=== PATIENT | male | born 1950 | race Caucasian/White ===

== ENCOUNTER → 2017-03-18 | Outpatient (CLI) | payer MEDICARE, OTHER ==
[~2017-03-18] MED LIST: CENTRUM SILVER1 TA1 PO; FISH OIL 10001000 MG PO; KEFLEX500 MG PO; MECLIZINE HCL25 M1 PO; NEXIUM40 MG PO
== END | disposition home or self-care (01) ==
LOC: US 12:02
DX: M79.89 Other specified soft tissue disorders (principal); R60.0 Localized edema; Z96.653 Presence of artificial knee joint, bilateral

== ENCOUNTER 2018-11-22 10:15 | Emergency (ER) | payer MEDICARE, OTHER ==
[~2018-11-22] VITALS: Ht 180.3 cm; Wt 97.5 kg
--- NOTE | ~2018-11-22 | EKG ---
[place], [place] ELECTROCARDIOGRAM REPORT NAME: JOHN POP UNIT #: [id number] ROOM: DOCTOR: EPIPHANY DRAFT REPORT BIRTHDATE: [birth year] [facility] Test Date: 2018-11-22 Test Time: 11:04:27 Pat Name: JOHN POP Department: Room: Gender: Forensic Accountant: Carmen Clark : 1950 Requested By: MARTA DELGADO DNP Order Number: [id number] Reading MD: Bonifacio Serrato MD Measurements Intervals [place] Rate: 50 P: 66 OR: 155 QRS: 37 QRSD: 89 T: 44 QT: 426 QTc: 389 Interpretive Statements Sinus rhythm Baseline wander in lead(s) V4,V5,V6 No previous ECG available for comparison Electronically Signed On 11-24-2018 8:03:06 PDT by Bonifacio Serrato MD CM:EKGRPT:ELECTROCARDIOGRAM REPORT [id number] MARTA DELGADO DNP EPIPHANY DRAFT REPORT MARTA DELGADO DNP
[2018-11-22 10:53] LABS: BASO % 0.6 % (0.0-1.0); EOS # 0.1 10*3/uL (0.0-0.4); EOS % 1.9 % (1.0-4.0); HEMATOCRIT 46.5 % (42.0-52.0); HEMOGLOBIN 15.7 g/dl (14.0-18.0); LYMPH # 1.8 10*3/uL (1.3-4.4); LYMPH % 33.9 % (27.0-41.0); MEAN CELL VOLUME 95.9 fl (80.0-94.0); MEAN CORPUSCULAR HGB 32.4 pg (27.0-31.0); MEAN CORPUSCULAR HGB CONC 33.8 g/dl (33.0-37.0); MEAN PLATELET VOLUME 10.4 fl (9.6-12.3); MONO # 0.5 10*3/uL (0.1-1.0); MONO % 8.6 % (3.0-9.0); NEUT % 54.8 % (47.0-73.0); PLATELET COUNT AUTOMATED 211 10*3/uL (130-400); RED BLOOD COUNT 4.85 10*6/uL (4.50-5.90); RED CELL DISTRI WIDTH 12.3 % (0-14.5); WHITE BLOOD COUNT 5.4 10*3/uL (4.8-10.8)
[2018-11-22 11:04] LABS: INTERNATIONAL NORM RATIO 0.9 (2.0-3.5)
[2018-11-22 11:09] LABS: ALBUMIN 3.5 gm/dl (3.1-4.5); ALKALINE PHOSPHATASE 74 U/L (45-117); BUN 10 mg/dl (7-24); CHLORIDE 109 mmol/L (98-107); CREATININE 0.85 mg/dL (0.70-1.30); POTASSIUM 4.2 mmol/L (3.5-5.1); SGOT/AST 17 IU/L (3-35); SGPT/ALT 37 U/L (12-78); SODIUM 139 mmol/L (136-145); TOTAL PROTEIN 6.3 gm/dL (6.4-8.2)
[2018-11-22 11:11] LABS: TROPONIN I < 0.015 ng/ml (<0.045)
== END 2018-11-22 12:25 | disposition home or self-care (01) ==
LOC: ED 10:15
PROVIDERS: Nurse Practitioner Family
DX: M79.661 Pain in right lower leg (principal); R60.0 Localized edema; Z79.899 Other long term (current) drug therapy; Z87.891 Personal history of nicotine dependence

== ENCOUNTER → 2019-10-18 | Outpatient (CLI) | payer MEDICARE, OTHER | END | disposition home or self-care (01) | LOC: CARD 00:14 | DX: R00.1 Bradycardia, unspecified (principal) ==

== ENCOUNTER → 2019-11-20 | Outpatient (CLI) | payer MEDICARE, OTHER | END | disposition home or self-care (01) | LOC: US 01:03 | PROVIDERS: ATTEND Physician Assistant | DX: I65.23 Occlusion and stenosis of bilateral carotid arteries (principal); R00.1 Bradycardia, unspecified ==

== ENCOUNTER → 2019-11-29 | Outpatient (CLI) | payer MEDICARE, OTHER ==
--- NOTE | 2019-11-29 11:00 | NUR ---
INFORMED SIGNED CONSENT OBTAINED FOR CARDIOLITE NUCLEAR STRESS TEST WITH DR WHATLEY. RESTING EKG SINUS BRADYCARDIA HR 50 BP 134/88 IN WITH INVERTED T-WAVE IN AVR, IN STANDING POSITION HR 56 BP 120/90. PT COMPLETED 6:00 OF A PETER PROTOCOL WITH PT COMPLETING STAGE II AT 2.5 MPH AND A 12% GRADE. PT REACHED A MAXIMUM HR OF 149 WHICH REPRESENTS 987% OF PREDICTED MAXIMUM AND A PEAK BP OF 186/88. PVCS AND PACS NOTED, ST DEPRESSION RESOLVED IN RECOVERY. TEST TERMINATED DUE OT FATIUGE. LAST RECOVERY HR OF 84 BP 142/90. PT IN STABLE CONDITION AWAITING NUCLEAR IMAGES.
== END | disposition home or self-care (01) ==
LOC: CARD 00:07
PROVIDERS: ATTEND Internal Medicine Cardiovascular Disease
DX: R00.1 Bradycardia, unspecified (principal); R53.83 Other fatigue; R94.31 Abnormal electrocardiogram [ECG] [EKG]

== ENCOUNTER → 2020-04-04 | Outpatient (CLI) | payer MEDICARE, OTHER | END | disposition home or self-care (01) | LOC: COVID19 08:26 | PROVIDERS: ATTEND Physician Assistant | DX: Z20.822 Contact with and (suspected) exposure to COVID-19 (principal) ==

== ENCOUNTER → 2020-09-20 | Outpatient (CLI) | payer MEDICARE, OTHER ==
[2020-09-20 07:53] LABS: HEMATOCRIT 45.9 % (42.0-52.0); MEAN CELL VOLUME 94.8 fl (80.0-94.0); MEAN CORPUSCULAR HGB 32.4 pg (27.0-31.0); MEAN CORPUSCULAR HGB CONC 34.2 g/dl (33.0-37.0); MEAN PLATELET VOLUME 10.8 fl (9.6-12.3); RED BLOOD COUNT 4.84 10*6/uL (4.50-5.90); RED CELL DISTRI WIDTH 12.7 % (0-14.5)
[2020-09-20 08:11] LABS: CHLORIDE 112 mmol/L (98-107); POTASSIUM 3.8 mmol/L (3.5-5.1); SODIUM 138 mmol/L (136-145)
[2020-09-20 08:23] LABS: ALBUMIN 3.4 gm/dl (3.1-4.5); ALKALINE PHOSPHATASE 70 U/L (45-117); BUN 11 mg/dl (7-24); CHOLESTEROL 144 mg/dL (<200); CREATININE 0.77 mg/dL (0.70-1.30); LDL CHOLESTEROL 88 mg/dL (9-159); SGOT/AST 20 IU/L (3-35); SGPT/ALT 49 U/L (12-78); TOTAL PROTEIN 6.4 gm/dL (6.4-8.2); TRIGLYCERIDES 60 mg/dl (<150)
== END | disposition home or self-care (01) ==
LOC: LAB 02:23
PROVIDERS: Physician Assistant; ATTEND Physician Assistant
DX: Z12.5 Encounter for screening for malignant neoplasm of prostate (principal); B37.0 Candidal stomatitis; R03.0 Elevated blood-pressure reading, without diagnosis of hypertension; L57.0 Actinic keratosis; L81.4 Other melanin hyperpigmentation; D22.9 Melanocytic nevi, unspecified; A69.20 Lyme disease, unspecified; L82.1 Other seborrheic keratosis; E66.9 Obesity, unspecified; Z08 Encounter for follow-up examination after completed treatment for malignant neoplasm; Z85.828 Personal history of other malignant neoplasm of skin

== ENCOUNTER 2020-12-23 11:54 | Inpatient (IN) | payer MEDICARE, OTHER ==
[~2020-12-23] VITALS: Ht 177.8 cm; Wt 99.8 kg
[2020-12-23 12:02] VITALS: BP 152/86
[2020-12-23 12:26] LABS: BASO % 0.3 % (0.0-1.0); EOS # 0.1 10*3/uL (0.0-0.4); EOS % 2.1 % (1.0-4.0); HEMATOCRIT 51.1 % (42.0-52.0); LYMPH # 2.1 10*3/uL (1.3-4.4); LYMPH % 31.2 % (27.0-41.0); MEAN CELL VOLUME 96.8 fl (80.0-94.0); MEAN CORPUSCULAR HGB 32.2 pg (27.0-31.0); MEAN CORPUSCULAR HGB CONC 33.3 g/dl (33.0-37.0); MEAN PLATELET VOLUME 10.2 fl (9.6-12.3); MONO # 0.5 10*3/uL (0.1-1.0); MONO % 7.8 % (3.0-9.0); NEUT # 3.9 10*3/uL (2.3-7.9); NEUT % 58.5 % (47.0-73.0); PLATELET COUNT AUTOMATED 239 10*3/uL (130-400); RED BLOOD COUNT 5.28 10*6/uL (4.50-5.90); RED CELL DISTRI WIDTH 12.4 % (0-14.5); WHITE BLOOD COUNT 6.7 10*3/uL (4.8-10.8)
[2020-12-23 12:37] LABS: ACT PARTIAL THROMBO TIME 25.4 SECONDS (20.0-32.1); INTERNATIONAL NORM RATIO 0.9 (2.0-3.5)
[2020-12-23 12:42] LABS: ALBUMIN 3.6 gm/dl (3.1-4.5); ALKALINE PHOSPHATASE 74 U/L (45-117); BUN 11 mg/dl (7-24); CHLORIDE 109 mmol/L (98-107); CREATININE 0.91 mg/dL (0.70-1.30); POTASSIUM 4.1 mmol/L (3.5-5.1); SGOT/AST 27 IU/L (3-35); SGPT/ALT 54 U/L (12-78); SODIUM 140 mmol/L (136-145); TOTAL PROTEIN 6.9 gm/dL (6.4-8.2)
[2020-12-23 12:43] LABS: LIPASE 136 U/L (73-393); TROPONIN I < 0.015 ng/ml (<0.045)
== END 2020-12-23 17:16 | disposition home or self-care (01) | DRG 149 ==
LOC: ED 11:54 → EDHOLD 14:40
PROVIDERS: Emergency Medicine; ADMIT Student in an Organized Health Care Education/Training Program; ATTEND Student in an Organized Health Care Education/Training Program
DX: R42 Dizziness and giddiness (principal); I49.1 Atrial premature depolarization; K21.9 Gastro-esophageal reflux disease without esophagitis; Z96.653 Presence of artificial knee joint, bilateral; R73.9 Hyperglycemia, unspecified; E87.8 Other disorders of electrolyte and fluid balance, not elsewhere classified; E83.41 Hypermagnesemia; E66.9 Obesity, unspecified; Z68.31 Body mass index [BMI] 31.0-31.9, adult; Z87.891 Personal history of nicotine dependence; Z82.49 Family history of ischemic heart disease and other diseases of the circulatory system; Z80.0 Family history of malignant neoplasm of digestive organs; Z79.899 Other long term (current) drug therapy

== ENCOUNTER → 2021-08-09 | Outpatient (CLI) | payer MEDICARE, OTHER ==
[2021-08-09 08:45] LABS: HEMATOCRIT 46.6 % (42.0-52.0); MEAN CELL VOLUME 93.4 fl (80.0-94.0); MEAN CORPUSCULAR HGB 32.1 pg (27.0-31.0); MEAN CORPUSCULAR HGB CONC 34.3 g/dl (33.0-37.0); MEAN PLATELET VOLUME 10.1 fl (9.6-12.3); RED BLOOD COUNT 4.99 10*6/uL (4.50-5.90); RED CELL DISTRI WIDTH 12.8 % (0-14.5); WHITE BLOOD COUNT 5.5 10*3/uL (4.8-10.8)
[2021-08-09 09:24] LABS: ALKALINE PHOSPHATASE 69 U/L (45-117); BUN 15 mg/dl (7-24); CHLORIDE 111 mmol/L (98-107); CHOLESTEROL 126 mg/dL (<200); CREATININE 0.83 mg/dL (0.70-1.30); LDL CHOLESTEROL 74 mg/dL (9-159); POTASSIUM 4.2 mmol/L (3.5-5.1); SGOT/AST 22 IU/L (3-35); SGPT/ALT 51 U/L (12-78); SODIUM 141 mmol/L (136-145); TOTAL PROTEIN 6.2 gm/dL (6.4-8.2); TRIGLYCERIDES 47 mg/dl (<150)
== END | disposition home or self-care (01) ==
LOC: LAB 08:31
PROVIDERS: ATTEND Physician Assistant
DX: Z12.5 Encounter for screening for malignant neoplasm of prostate (principal); K21.9 Gastro-esophageal reflux disease without esophagitis; N40.1 Benign prostatic hyperplasia with lower urinary tract symptoms; Z79.899 Other long term (current) drug therapy

== ENCOUNTER → 2022-01-28 | Outpatient (CLI) | payer MEDICARE, OTHER ==
[2022-01-28 07:36] LABS: BASO % 0.5 % (0.0-1.0); EOS # 0.2 10*3/uL (0.0-0.4); EOS % 1.8 % (1.0-4.0); LYMPH % 23.1 % (27.0-41.0); MEAN CELL VOLUME 94.1 fl (80.0-94.0); MEAN CORPUSCULAR HGB 32.2 pg (27.0-31.0); MEAN CORPUSCULAR HGB CONC 34.2 g/dl (33.0-37.0); MEAN PLATELET VOLUME 9.1 fl (9.6-12.3); MONO # 0.6 10*3/uL (0.1-1.0); MONO % 7.2 % (3.0-9.0); NEUT # 5.8 10*3/uL (2.3-7.9); NEUT % 66.7 % (47.0-73.0); PLATELET COUNT AUTOMATED 353 10*3/uL (130-400); RED CELL DISTRI WIDTH 11.7 % (0-14.5); WHITE BLOOD COUNT 8.7 10*3/uL (4.8-10.8)
== END | disposition home or self-care (01) ==
LOC: LAB 01:03
PROVIDERS: ATTEND Physician Assistant
DX: J44.9 Chronic obstructive pulmonary disease, unspecified (principal)

== ENCOUNTER → 2022-12-10 | Outpatient (CLI) | payer MEDICARE | END | disposition home or self-care (01) | LOC: CARD 00:13 | PROVIDERS: ATTEND Internal Medicine Cardiovascular Disease | DX: I49.3 Ventricular premature depolarization (principal); R60.0 Localized edema; R06.02 Shortness of breath; G47.33 Obstructive sleep apnea (adult) (pediatric) ==

== ENCOUNTER → 2023-09-06 | Outpatient (CLI) | payer MEDICARE ==
[~2023-09-06] MED LIST changes: +Albuterol Sulfate 2.5 MG/3 ML VIAL NEB ONE
== END ==
LOC: CP 01:07
PROVIDERS: ATTEND Physician Assistant
DX: R06.02 Shortness of breath (principal)